=== PATIENT | female | born 1980 | race Caucasian/White ===

== ENCOUNTER 2017-02-19 14:02 | Emergency (ER) | payer OTHER ==
--- NOTE | ~2017-02-19 | CR126 ---
[facility]. [facility] A Service of [facility] & [facility] / [facility] RADIOLOGY TEXT RESULTS PATIENT: DANIAL LOCATION: SED : 84 UNIT #: [id number] AGE: [address]: LAURA SOTO PA-C SEX: F ORDER DR: [id number] [address] [address] [id number] MR#: [id number] Acc #: [id number] NAME: DANIALJanuary : 1980 SEX: F STUDY DATE/TIME: 02/19/2017 13:52 UNIT: SED ROOM: STUDY DESCRIPTION: CR Foot Complete Min 3 View Lt Attending Physician: Laura Soto Pa-C Ordering Physician: Laura Soto Pa-C Primary Care Physician: Vince Gonzalez M.D. MEDICAL IMAGING REPORT This report is preliminary unless electronic signature is present. EXAM Left foot 02/19/2017 HISTORY 36-year-old female with left foot and ankle pain status post twisting injury last night. COMPARISON Left ankle same date. FINDINGS 3 views of the left foot demonstrate no acute fracture or dislocation. No joint effusion. Mild lateral ankle soft tissue swelling. IMPRESSION Mild lateral ankle soft tissue swelling. No evidence of acute fracture or dislocation. Dictated by... Supa Church M.D. THIS IS AN ELECTRONICALLY VERIFIED REPORT Supa Church M.D. at 02/20/2017 4:47 PM Candace TD: 02/19/2017 16:52 JOB #: [id number] MEDICAL IMAGING REPORT Page 1 of 1
--- NOTE | ~2017-02-19 | CR20 ---
[facility]. [facility] A Service of [facility] & [facility] / [facility] RADIOLOGY TEXT RESULTS PATIENT: DANIAL LOCATION: SED : 84 UNIT #: [id number] AGE: [address]: LAURA SOTO PA-C SEX: F ORDER DR: [id number] [address] [address] [id number] E MR#: [id number] Acc #: [id number] NAME: DANIALJanuary : 1980 SEX: F STUDY DATE/TIME: 02/19/2017 13:52 UNIT: SED ROOM: STUDY DESCRIPTION: CR Ankle Min 3 Views Lt Attending Physician: Laura Soto Pa-C Ordering Physician: Laura Soto Pa-C Primary Care Physician: Vince Gonzalez M.D. MEDICAL IMAGING REPORT This report is preliminary unless electronic signature is present. EXAM Left ankle 02/19/2017 HISTORY Left ankle pain status post twisting injury last night. COMPARISON Left foot same date. FINDINGS 3 views of the left ankle demonstrate no acute fracture or dislocation. Ankle mortise symmetric. Talar dome intact. No ankle effusion. Mild lateral ankle soft tissue swelling. IMPRESSION Mild lateral ankle soft tissue swelling. No evidence of acute fracture or dislocation. Dictated by... Supa Church M.D. THIS IS AN ELECTRONICALLY VERIFIED REPORT Supa Church M.D. at 02/20/2017 4:47 PM Candace TD: 02/19/2017 16:53 JOB #: [id number] MEDICAL IMAGING REPORT Page 1 of 1
[~2017-02-19 14:02] MED LIST: FAMOTIDINE PO; IMODIUM2 MG PO; PHENERGAN PO; SERTRALINE HCL50 M1 PO; VALTREX500 MG PO; ZOFRAN PO
== END 2017-02-19 15:48 | disposition home or self-care (01) ==
LOC: SED 14:02
DX: S93.402A Sprain of unspecified ligament of left ankle, initial encounter (principal); W10.9XXA Fall (on) (from) unspecified stairs and steps, initial encounter; Y92.009 Unspecified place in unspecified non-institutional (private) residence as the place of occurrence of the external cause
CPT/HCPCS: 29515; 73610; 73630; 96372; 99283; J2270